=== PATIENT | female | born 1985 | race Asian ===

== ENCOUNTER 2020-10-06 00:56 | Observation (INO) | payer OTHER, SELFPAY ==
[2020-10-06] VITALS (25 sets, daily range): BP systolic 91–147; BP diastolic 64–93; PULSE 82–107; RESP 12–19; TEMP 36.5–38; O2SAT 15–100; BMI 22.4
--- NOTE | 2020-10-06 01:00 | PC.NURSE ---
Error when entering triage vitals. Will not let me edit. respirations 15, pulse ox 99% on room air.
[2020-10-06 01:52] LABS: Add Urine Microscopic? NO; Charge for UA Resulting for Rev
[2020-10-06 01:55] LABS: Glucose Urine UA Norm (Normal); Ketones Urine 1+ (Negative); Protein Urine Neg (Negative); Urine Appearance Clear (CLEAR); Urine Color Yellow (Yellow); pH Urine 5 (5-7)
[2020-10-06 01:56] LABS: Bilirubin Urine Neg (Negative); Blood Urine Neg (Negative); Leukocyte Esterase Urine Negative (Negative); Nitrate Urine Negative (Negative); Urobilinogen Urine Norm (Negative)
--- NOTE | 2020-10-06 02:15 | W.ED.ABDPA2 ---
HPI - Abdominal Pain General: Chief Complaint: Abdominal Pain Stated Complaint: abdominal pain Time Seen by Provider: 10/06/20 02:03 Source: patient Mode of arrival: ambulatory Limitations: no limitations History of Present Illness: HPI narrative: 35-year-old female who states she has a history of bowel syndrome. States she started having pain this evening at 6 PM. States pain is sharp nature and diffuse. She denies any worsening improving factors. Denies any vomiting or diarrhea. She denies any fever. MD elicited complaint: abdominal pain Associated Symptoms: Denies chills, dysuria and fever(s) Related Data: Date of Last Menstrual Period: 09/23/20 Review of Systems Const: Denies: fever(s), chills, body aches or change in appetite Eyes: Denies: blurry vision or eye discomfort ENMT: Denies: throat pain or dental pain Card: Denies: chest pain Resp: Denies: dyspnea GI: Reports: abdominal pain : Denies: dysuria Musc: Denies: neck pain or back pain Skin/Breast: Denies: rash Neuro: Denies: headache(s) Psych: Denies: depression Lopez/Lymph: Denies: easy bruising All/Imm: Denies: urticaria [facility] ED Female Reproductive History: Date of last menstrual period: 09/23/20 Physical Exam Const: COMMON NORMALS: no acute distress, patient oriented x3 and healthy appearing HENMT: COMMON NORMALS: normocephalic and atraumatic HEAD & SCALP: normocephalic and atraumatic Eye: COMMON NORMALS: Equal, round and reactive pupils present and EOMs intact bilaterally PUPIL: Yes Equal, round and reactive pupils present Neck/C-Spine: COMMON NORMALS: full ROM and supple Chest: COMMONS NORMALS: normal inspection of the chest and normal palpation of entire chest wall Resp: COMMON NORMALS: normal respiratory effort, No retractions, No use of accessory muscles and clear to auscultation bilaterally AUSCULTATION: clear to auscultation bilaterally Cardio: COMMON NORMALS: regular rate, regular rhythm and No murmurs present (Cardio) RATE: regular rate RHYTHM: regular rhythm GI: COMMON NORMALS: Normal to inspection, nondistended, normoactive bowel sounds present, Soft to palpation and no masses PALPATION: Yes Soft to palpation OTHER: diffuse mild tenderness Extremity: COMMON NORMALS: normal to inspection and full ROM Neuro: COMMON NORMALS: patient oriented x3, moves all extremities and no focal motor deficits Psych: COMMON NORMALS: mental status grossly normal, Normal thought process present and cooperative THOUGHT PROCESS: Normal thought process present Skin: COMMON NORMALS: no rashes or lesions noted and no wounds GENERAL SKIN EXAM: no rashes or lesions noted Course Vital Signs: Vital signs: Vital Signs Temperature 98.2 F 10/06/20 00:59 Pulse Rate 89 10/06/20 00:59 Respiratory Rate 16 10/06/20 03:10 Blood Pressure 147/93 10/06/20 00:59 Pulse Oximetry 98 10/06/20 03:10 MDM - Abdominal Pain MDM Narrative: Medical decision making narrative: Patient presents with abdominal pain does have an elevated white count CT shows appendicitis. Patient given IV antibiotics I spoke to surgeon Dr. Crooks who is admitting. Patient has been stable while here and has been pain-free after Dilaudid. Lab Data: Labs: Lab Results 10/06/20 10/06/20 10/06/20 Range/Units 01:48 03:15 03:15 WBC 17.3 H (4.0-10.0) 10^3/ uL RBC 4.77 (4.1-5.3) 10^6/u L Hgb 14.6 (11.5-15.3) g/dL Hct 44.1 (37.0-47.0) % MCV 92.5 (81-99) fL MCH 30.6 (28.0-34.0) pg MCHC 33.1 (30.0-36.0) g/dL RDW 11.4 L (12.1-15.1) % Plt Count 263 (130-400) 10^3/c mm MPV 11.0 H (7.4-10.4) fL Neut % (Auto) 88.3 % Lymph % (Auto) 5.6 % [place] % (Auto) 5.1 % Eos % (Auto) 0.0 % Baso % (Auto) 0.5 % Neut # (Auto) 15.26 H (1.8-7.7) 10^3/u L Lymph # (Auto) 1.0 (0.8-4.8) 10^3/u L [place] # (Auto) 0.9 (0.2-0.9) 10^3/u L Eos # (Auto) 0.0 (0.0-0.8) 10^3/u L Baso # (Auto) 0.1 (0.0-0.1) 10^3/u L Nucleated RBC % (a uto) 0 % Nucleated RBCs # 0.0 /100WBC Sodium 137 (136-145) mmol/L Potassium 3.7 (3.5-5.1) mmol/L Chloride 99 (98-107) mmol/L Carbon Dioxide 27 (22-29) mmol/L Anion Gap 14.7 (5-19) BUN 10 (6-20) mg/dL Creatinine 0.7 (0.5-0.9) mg/dL GFR Calculation 94.7 (90-130) mL/min Glucose 114 (65-115) mg/dL Calculated Osmolal ity 284 L (285-295) mOsm/k g Calcium 9.0 (8.5-10.5) mg/dL Total Bilirubin 0.4 (0.15-1.2) mg/dL AST 17 (0-32) U/L ALT 19 (0-33) U/L Alkaline Phosphata se 64 (35-105) IU/L Total Protein 7.8 (6.6-8.7) g/dL Albumin 4.6 (3.5-5.2) g/dL Globulin 3.2 (1.3-4.6) g/dL Lipase 24 (13-60) U/L HCG, Qual (Negative) Urine Color Yellow (Yellow) Urine Appearance Clear (CLEAR) Urine pH 5 (5-7) Ur Specific Gravit y 1.030 (1.005-1.030) Urine Protein Neg (Negative) Urine Glucose (UA) Norm (Normal) Urine Ketones 1+ H (Negative) Urine Blood Neg (Negative) Urine Nitrate Negative (Negative) Urine Bilirubin Neg (Negative) Urine Urobilinogen Norm (Negative) mg/dL Ur Leukocyte Bailey ase Negative (Negative) 10/06/20 Range/Units 03:15 WBC (4.0-10.0) 10^3/ uL RBC (4.1-5.3) 10^6/u L Hgb (11.5-15.3) g/dL Hct (37.0-47.0) % MCV (81-99) fL MCH (28.0-34.0) pg MCHC (30.0-36.0) g/dL RDW (12.1-15.1) % Plt Count (130-400) 10^3/c mm MPV (7.4-10.4) fL Neut % (Auto) % Lymph % (Auto) % [place] % (Auto) % Eos % (Auto) % Baso % (Auto) % Neut # (Auto) (1.8-7.7) 10^3/u L Lymph # (Auto) (0.8-4.8) 10^3/u L [place] # (Auto) (0.2-0.9) 10^3/u L Eos # (Auto) (0.0-0.8) 10^3/u L Baso # (Auto) (0.0-0.1) 10^3/u L Nucleated RBC % (a uto) % Nucleated RBCs # /100WBC Sodium (136-145) mmol/L Potassium (3.5-5.1) mmol/L Chloride (98-107) mmol/L Carbon Dioxide (22-29) mmol/L Anion Gap (5-19) BUN (6-20) mg/dL Creatinine (0.5-0.9) mg/dL GFR Calculation (90-130) mL/min Glucose (65-115) mg/dL Calculated Osmolal ity (285-295) mOsm/k g Calcium (8.5-10.5) mg/dL Total Bilirubin (0.15-1.2) mg/dL AST (0-32) U/L ALT (0-33) U/L Alkaline Phosphata se (35-105) IU/L Total Protein (6.6-8.7) g/dL Albumin (3.5-5.2) g/dL Globulin (1.3-4.6) g/dL Lipase (13-60) U/L HCG, Qual Negative (Negative) Urine Color (Yellow) Urine Appearance (CLEAR) Urine pH (5-7) Ur Specific Gravit y (1.005-1.030) Urine Protein (Negative) Urine Glucose (UA) (Normal) Urine Ketones (Negative) Urine Blood (Negative) Urine Nitrate (Negative) Urine Bilirubin (Negative) Urine Urobilinogen (Negative) mg/dL Ur Leukocyte Bailey ase (Negative) Imaging Data ^: CT Abd/Pel: Attestation: I personally reviewed and interpreted this imaging study as follows: Radiologist's impression: [facility] [address] [address] Scan Report Signed with Fadumo Patient: Jules Duran Unit #: [id number] : 1985 Age/Sex: 35 / F ADM Date: 10/06/20 Loc: ER Room/Bed: Attending Dr: Ordering Provider/Ordering MD: Mely Butler MD Date of Service: 10/06/20 Procedure(s): CT abdomen pelvis w con* [id number] Accession Number(s): [id number] Report Number: [id number]/CT abdomen pelvis w con* [id number] THIS REPORT CONTAINS FINDINGS THAT MAY BE CRITICAL TO PATIENT CARE. The findings were verbally communicated via telephone conference with MELY BUTLER at 4:59 AM CDT on 10/06/2020. The findings were acknowledged and understood. Radiation Dose CTDIVOL = (mGy): DLP = 674.77 (mGy-cm) Addendum Dictated By: Jordan Richards Addendum Signed By: Jordan Richards Signed Date/Time: 10/06/20 0501 Addendum Cosigned By: PROCEDURE INFORMATION: Exam: CT Abdomen And Pelvis With Contrast Exam date and time: 10/06/2020 3:54 AM Age: 35 years old Clinical indication: Abdominal pain; Generalized; Additional info: Abd pain TECHNIQUE: Imaging protocol: Computed tomography of the abdomen and pelvis with contrast. Radiation optimization: All CT scans at this facility use at least one of these dose optimization techniques: automated exposure control; mA and/or kV adjustment per patient size (includes targeted exams where dose is matched to clinical indication); or iterative reconstruction. Contrast material: OMNI 300; Contrast volume: 95 ml; Contrast route: INTRAVENOUS (IV); COMPARISON: No relevant prior studies available. RADIATION DOSE METRICS: Total DLP (mGy-cm): 674.77 FINDINGS: Liver: Normal. No mass. Gallbladder and bile ducts: Normal. No calcified stones. No ductal dilation. Pancreas: Normal. No ductal dilation. Spleen: Normal. No splenomegaly. Adrenal glands: Normal. No mass. Kidneys and ureters: Normal. No hydronephrosis. Stomach and bowel: Unremarkable. No obstruction. No mucosal thickening. Appendix: There is a prominent appendix containing fluid and appendicoliths, measuring up to 1.0 cm in diameter, and demonstrating mild wall thickening, as well as minimal stranding of the surrounding fat. No evidence of free air, extraluminal appendicoliths or fluid collection to suggest perforation. Intraperitoneal space: See Appendix finding. Vasculature: Unremarkable. No abdominal aortic aneurysm. Lymph nodes: Unremarkable. No enlarged lymph nodes. Urinary bladder: The urinary bladder is distended. Reproductive: Unremarkable as visualized. Bones/joints: Mild levocurvature of the lumbar spine is present. Soft tissues: Unremarkable. CT/CT abdomen pelvis w con* [id number] IMPRESSION: Imaging findings concerning for early acute appendicitis. Discharge Plan Discharge Patient Disposition: Admitted As Inpatient Clinical Impression: Acute appendicitis Qualifiers: Acute appendicitis type: unspecified acute appendicitis type Qualified Code(s): K35.80 - Unspecified acute appendicitis Condition: Stable Coding Level of Care Code ED Sales Technician Home Theater for [facility] Fwd Exam Comprehensive
[2020-10-06] MEDS: morphine 4 mg/mL SDV 1 mL IVP (03:10)
[2020-10-06] MEDS: ondansetron 2 mg/ML SDV 2 mL 4 MG IVP (03:10)
[2020-10-06 03:40] LABS: Basophils # 0.1 10^3/uL (0.0-0.1); Basophils % 0.5 %; Hematocrit 44.1 % (37.0-47.0); Hemoglobin 14.6 g/dL (11.5-15.3); Lymphocytes % 5.6 %; Mean Corpuscular HGB Conc 33.1 g/dL (30.0-36.0); Mean Corpuscular Hemoglobin 30.6 pg (28.0-34.0); Mean Corpuscular Volume 92.5 fL (81-99); Monocytes # 0.9 10^3/uL (0.2-0.9); Monocytes % 5.1 %; Neutrophils # 15.26 10^3/uL (1.8-7.7); Neutrophils % 88.3 %; Nucleated Red Blood Cells % 0 %; Platelet Count 263 10^3/cmm (130-400); Red Blood Count 4.77 10^6/uL (4.1-5.3); Red Cell Distribution Width 11.4 % (12.1-15.1); White Blood Count 17.3 10^3/uL (4.0-10.0)
[2020-10-06 03:42] LABS: HCG, Serum Qual Negative (Negative)
[2020-10-06 03:52] LABS: Alanine Aminotransferase 19 U/L (0-33); Albumin Level 4.6 g/dL (3.5-5.2); Alkaline Phosphatase 64 IU/L (35-105); Anion Gap 14.7 (5-19); Aspartate Amino Transferase 17 U/L (0-32); Blood Urea Nitrogen 10 mg/dL (6-20); Carbon Dioxide 27 mmol/L (22-29); Chloride 99 mmol/L (98-107); Globulin 3.2 g/dL (1.3-4.6); Glomerular Filtration Rate 94.7 mL/min (90-130); Glucose 114 mg/dL (65-115); Lipase 24 U/L (13-60); Osmolality Calculated 284 mOsm/kg (285-295); Potassium 3.7 mmol/L (3.5-5.1); Sodium 137 mmol/L (136-145); Total Bilirubin 0.4 mg/dL (0.15-1.2); Total Protein 7.8 g/dL (6.6-8.7)
[2020-10-06] MEDS: iohexol 300 mg/mL 100 mL Btl IV (04:01)
[2020-10-06] MEDS: piperacillin-tazobactam 3.375 GM in sodium chloride 0.9% (plus) 50 ML IV ×2 (05:15→10:33)
[2020-10-06] MEDS: HYDROmorphone 1 mg/mL INJ 1 mL IVP (05:17)
--- NOTE | 2020-10-06 09:06 | ANES.PREANE2 ---
Pre-Anesthetic Assessment Pre-Anesthetic Assessment: Height/Weight: Height 1.52 m Weight 52.163 kg Temp Pulse Resp BP Pulse Ox 99.3 F 84 18 134/76 98 10/06/20 08:47 10/06/20 08:47 10/06/20 08:47 10/06/20 08:47 10/06/20 08:47 Preop Diagnosis: appendicitis Proposed Procedure: Operation Date: 10/06/20 14:50 Proposed Procedures p Laparoscopic Appendectomy(Not Applicable) - Jason Crooks MD Familial anesthetic complications: None Was Beta Fabio taken within 24 hours: N/A Was Clonidine taken within 24 hours: N/A Last intake: Intake Last Liquid Date 10/05/20 Last Liquid Time 22:00 Last Solid Date 10/05/20 Last Solid Time 22:00 Social: Social History: No alcohol and No tobacco Exam: Pre-Anes Outpt Exam: alert, oriented x 3, clear to auscultation bilaterally and regular rate & rhythm Airway: Submandibular: WNL Cervical ROM: WNL MP: 1 Dentition: Full Anesthetic Plan: ASA status: 1 Anesthesia: General Risk of > 500 ml blood loss (7ml/kg in children): No PFSH Anesthesia Female Reproductive History: Date of last menstrual period: 09/23/20 Data Anesthesia CBC & Chem 7: 10/06/20 03:15 10/06/20 03:15 Other Labs: Laboratory Results - last 48 hr 10/06/20 10/06/20 10/06/20 01:48 03:15 03:15 WBC 17.3 H RBC 4.77 Hgb 14.6 Hct 44.1 MCV 92.5 MCH 30.6 MCHC 33.1 RDW 11.4 L Plt Count 263 MPV 11.0 H Neut % (Auto) 88.3 Lymph % (Auto) 5.6 [place] % (Auto) 5.1 Eos % (Auto) 0.0 Baso % (Auto) 0.5 Neut # (Auto) 15.26 H Lymph # (Auto) 1.0 [place] # (Auto) 0.9 Eos # (Auto) 0.0 Baso # (Auto) 0.1 Nucleated RBC % (auto) 0 Nucleated RBCs # 0.0 Sodium 137 Potassium 3.7 Chloride 99 Carbon Dioxide 27 Anion Gap 14.7 BUN 10 Creatinine 0.7 GFR Calculation 94.7 Glucose 114 Calculated Osmolality 284 L Calcium 9.0 Total Bilirubin 0.4 AST 17 ALT 19 Alkaline Phosphatase 64 Total Protein 7.8 Albumin 4.6 Globulin 3.2 Lipase 24 HCG, Qual Urine Color Yellow Urine Appearance Clear Urine pH 5 Ur Specific [place] 1.030 Urine Protein Neg Urine Glucose (UA) Norm Urine Ketones 1+ H Urine Blood Neg Urine Nitrate Negative Urine Bilirubin Neg Urine Urobilinogen Norm Ur Leukocyte Esterase Negative 10/06/20 03:15 WBC RBC Hgb Hct MCV MCH MCHC RDW Plt Count MPV Neut % (Auto) Lymph % (Auto) [place] % (Auto) Eos % (Auto) Baso % (Auto) Neut # (Auto) Lymph # (Auto) [place] # (Auto) Eos # (Auto) Baso # (Auto) Nucleated RBC % (auto) Nucleated RBCs # Sodium Potassium Chloride Carbon Dioxide Anion Gap BUN Creatinine GFR Calculation Glucose Calculated Osmolality Calcium Total Bilirubin AST ALT Alkaline Phosphatase Total Protein Albumin Globulin Lipase HCG, Qual Negative Urine Color Urine Appearance Urine pH Ur Specific [place] Urine Protein Urine Glucose (UA) Urine Ketones Urine Blood Urine Nitrate Urine Bilirubin Urine Urobilinogen Ur Leukocyte Esterase Cardiac Studies: No Data to Display
[2020-10-06] MEDS: fentaNYL 50 mcg/mL INJ 2mL IVP (09:28)
--- NOTE | 2020-10-06 10:14 | PM.HP ---
Providers/Chief Complaint Admitting Physician: Jason Crooks MD Primary Care Provider: Candy Castro MD Chief Complaint: abdominal pain History of Present Illness Jules Duran is a 35 year old female who developed right lower quadrant pain yesterday evening. Patient states the pain progressively got worse, does not radiate, worse with physical activity. Patient denies any fevers, chills, nausea, vomiting or constipation or diarrhea. No urinary symptoms. No similar episodes in the past. Patient does not have any medical or surgical history Review of Systems General: Reports: 10 or more systems reviewed and unremarkable except in HPI and below Medications/Allergies Allergies Allergy/AdvReac Type Severity Reaction Status Date / Time No Known Allergies Allergy Verified 10/06/20 09:17 PFS Acute Female Reproductive History: Date of last menstrual period: 09/23/20 Vitals/I&O/Wt Last Vital Signs Temp 99.3 F 10/06/20 08:47 Pulse 84 10/06/20 08:47 Resp 16 10/06/20 09:28 BP 134/76 10/06/20 08:47 Pulse Ox 97 10/06/20 09:28 10/05/20 10/06/20 10/06/20 22:59 06:59 14:59 Intake Total 50 / 50 0 / 0 Balance 50 / 50 0 / 0 Weight last 48 hrs Weight 115 lb Physical Exam Narrative: EXAM NARRATIVE: HEENT: Normocephalic Eye: Sclera /conjunctiva normal Respiratory and chest: Bilateral clear breath sounds on auscultation Cardiovascular: Normal S1 and S2 heart sounds Abdomen: Soft to palpation, tender right lower quadrant, no guarding or rigidity Neurological: Oriented to place person and time Skin: Intact, no lesions appreciated on gross exam Data : 10/06/20 03:15 10/06/20 03:15 A&P Assessment and plan (1) Acute appendicitis: 35-year-old female with right lower quadrant pain, WBC 17.[address] scan showing early acute appendicitis Plan for laparoscopic possible open appendectomy Procedure, risks, benefits and alternatives have been discussed with the patient who wishes to proceed with surgery. Status: Acute Qualifiers: Acute appendicitis type: unspecified acute appendicitis type Qualified Code(s): K35.80 - Unspecified acute appendicitis Attestations Medical Necessity Statement*: Acute appendicitis Coding Level of Care Code Acute Reference Library Assistant for Chg Fwd Diagnoses Acute appendicitis K35.80 Acute appendicitis type: unspecified acute appendicitis type
--- NOTE | 2020-10-06 11:06 | PM.OP ---
Operative Report Date of procedure: October 06, 2020 Pre-op Diagnosis: Acute appendicitis Post-op diagnosis: same Procedure Done: Laparoscopic appendectomy Specimens removed/disposition: Appendix Surgeon: Jason Crooks Anesthesia: General Condition: stable Disposition: PACU Procedure: The patient was taken to the Operating Room and intubated under general anesthesia after antibiotic had been administered. Using a 15 blade, a 1-cm infraumbilical incision was made and using open Ravi technique, the peritoneal cavity was entered. A 12mm port with balloon was placed and 14 mm of pneumoperitoneum was created and 10-mm 30 degree scope was introduced. Two separate 5mm ports were placed in the left and right lower quadrant under direct visualization. The appendix was noted in the right lower quadrant and appeared acutely inflamed.. Using [place] forceps, an opening was made in the mesoappendix near the base of the appendix. An Endo DENTON stapler 45mm long 3.5mm blue load was introduced to divide the appendix at it's base. Using electrocautery, the mesoappendix including the appendicular artery was divided. There was no bleeding noted and the staple line appeared intact. The right lower quadrant was irrigated with saline and an EndoCatch bag was introduced to remove the appendix. All three ports were removed under direct visualization and there was no bleeding noted on the port sites. 10 0.5% Marcaine was infiltrated at the port sites. The fascia at the umbilical port was closed using figure of eight 0-Vicryl sutures and subcutaneous tissue was approximated using 3-0 Vicryl and skin at all 3 port sites was closed using 4-0 Monocryl and Dermabond.
--- NOTE | 2020-10-06 11:07 | P.DS_ITS ---
Discharge Providers Date of Admission: 10/06/20 06:09 Date of Discharge: October 06, 2020 Attending Provider at Admission: Jason Crooks MD Attending Provider at Discharge: Jason Crooks MD Primary Care Provider: Candy Castro MD Diagnoses at Discharge Discharge Diagnosis (1) Acute appendicitis: Status: Resolved Qualifiers: Acute appendicitis type: unspecified acute appendicitis type Qualified Code(s): K35.80 - Unspecified acute appendicitis Reason for Visit Reason for Visit: abdominal pain Hospital Course Hospital Course Jules Duran is a 35 year old female who developed right lower quadrant pain yesterday evening. Patient states the pain progressively got worse, does not radiate, worse with physical activity. Patient denies any fevers, chills, nausea, vomiting or constipation or diarrhea. No urinary symptoms. No similar episodes in the past. Patient does not have any medical or surgical history Patient is admitted to the hospital and placed on IV Zosyn. She underwent laparoscopic appendectomy. At time of discharge her vital signs are stable, she is tolerating a clear liquid diet and pain controlled with oral pain medications Discharge Data Data Completed and Pending: Completed Studies During Hospitalization Category Date Time Status CT abdomen pelvis w con* [id number] Urge nt Cat Scan 10/06/20 02:14 Completed Pending at discharge Category Date Time Status ES surgery / GI i mages Routine Exams 10/06/20 09:27 Taken Pathology: Surgic al [PTH] Routine Pth 10/06/20 10:52 Ordered Labs from last 24 hours 10/06/20 10/06/20 10/06/20 03:15 03:15 03:15 WBC 17.3 H RBC 4.77 Hgb 14.6 Hct 44.1 MCV 92.5 MCH 30.6 MCHC 33.1 RDW 11.4 L Plt Count 263 MPV 11.0 H Neut % (Auto) 88.3 Lymph % (Auto) 5.6 [place] % (Auto) 5.1 Eos % (Auto) 0.0 Baso % (Auto) 0.5 Neut # (Auto) 15.26 H Lymph # (Auto) 1.0 [place] # (Auto) 0.9 Eos # (Auto) 0.0 Baso # (Auto) 0.1 Nucleated RBC % (a uto) 0 Nucleated RBCs # 0.0 Sodium 137 Potassium 3.7 Chloride 99 Carbon Dioxide 27 Anion Gap 14.7 BUN 10 Creatinine 0.7 GFR Calculation 94.7 Glucose 114 Calculated Osmolal ity 284 L Calcium 9.0 Total Bilirubin 0.4 AST 17 ALT 19 Alkaline Phosphata se 64 Total Protein 7.8 Albumin 4.6 Globulin 3.2 Lipase 24 HCG, Qual Negative Urine Color Urine Appearance Urine pH Ur Specific Gravit y Urine Protein Urine Glucose (UA) Urine Ketones Urine Blood Urine Nitrate Urine Bilirubin Urine Urobilinogen Ur Leukocyte Bailey ase 10/06/20 01:48 WBC RBC Hgb Hct MCV MCH MCHC RDW Plt Count MPV Neut % (Auto) Lymph % (Auto) [place] % (Auto) Eos % (Auto) Baso % (Auto) Neut # (Auto) Lymph # (Auto) [place] # (Auto) Eos # (Auto) Baso # (Auto) Nucleated RBC % (a uto) Nucleated RBCs # Sodium Potassium Chloride Carbon Dioxide Anion Gap BUN Creatinine GFR Calculation Glucose Calculated Osmolal ity Calcium Total Bilirubin AST ALT Alkaline Phosphata se Total Protein Albumin Globulin Lipase HCG, Qual Urine Color Yellow Urine Appearance Clear Urine pH 5 Ur Specific Gravit y 1.030 Urine Protein Neg Urine Glucose (UA) Norm Urine Ketones 1+ H Urine Blood Neg Urine Nitrate Negative Urine Bilirubin Neg Urine Urobilinogen Norm Ur Leukocyte Bailey ase Negative Vitals: Last Vital Signs Temp 99.3 F 10/06/20 08:47 Pulse 84 10/06/20 08:47 Resp 16 10/06/20 09:28 BP 134/76 10/06/20 08:47 Pulse Ox 97 10/06/20 09:28 Discharge Plan Discharge Patient Disposition: Home Condition: Stable Prescriptions: New hydrocodone-acetaminophen 5-325 mg tablet 1 tab PO Q6H PRN (Reason: pain) Qty: 20 RF: 0 docusate sodium [Colace] 100 mg capsule 100 mg PO BID Qty: 30 RF: 0 ondansetron HCl [Zofran] 4 mg tablet 4 mg PO Q6H PRN (Reason: nausea and vomiting) Qty: 20 RF: 0 Discharge Orders: Discharge Order (Routine); Ordered 10/06/20 Ordered By: Jason Crooks Referrals: Candy Castro MD [Primary Care Provider] - Patient Instructions: Appendicitis (GEN), Opioid Safety Discharge Attestations Time Spent in Discharge Care*: less than 30 min Quality Metrics Clinical Quality Measures During this hospital stay, did patient experience: None Coding Level of Care Code Acute Chg FW DC note Diagnoses Acute appendicitis K35.80 Acute appendicitis type: unspecified acute appendicitis type
--- NOTE | 2020-10-06 12:02 | PC.NURSE ---
1145 OR NOTE UP FROM OR VIA GURNEY - PT ABLE TO MOVE SELF TO BED - GROGGY - AP RRR - LUNGS COARSE THROUGHOUT - IV PATENT TO RIGHT AC - X3 STABS TO ABD C/D/I WITH NO REDNESS OR DRAINAGE NOTED - SECURED WITH DERMABOND - ATILIO SCD'S IN PLACE - VSS
--- NOTE | 2020-10-06 12:33 | PC.CHAP ---
Pastoral Care Encounter/Spiritual Assessment Type of Contact [] Declined industrial maintenance electrician visit [] Patient/Family/Request visit [] Outpatient visit [] Follow-up visit [] Physician referral [] Code/Alert [x] Routine visit [] Staff referral [] Actively dying [] Patient sleeping [] Family support [] [x] Out of room [] Palliative care [] [] Receiving care in room [] Pre-surgical visit [] Trauma [] Long length of stay [] ICU visit [] Other: Relational/Emotional Strength [] Patient feels connected with others/family/visitors/staff [] Distress [] Loneliness/isolation [] Abandonment Spirituality of Patient [] Person of Simin [] Attends Mosque of their Simin [] Believes in Prayer [] Reads Bible or Religion materials [] There are Spiritual issues to be addressed Product Finisher Interventions [] Prayer [] Active listening [] Non-anxious presence [] Spiritual/emotional support [] Crisis/trauma care [] Spiritual counseling [] Bereavement support [] Provided bereavement packet [] Provided Bible/devotional materials [] Provided toy/stuffed animal, coloring book to patient or family member [] Provided Communion [] Anointing/[place] [] Salvation [] Completed spiritual assessment [] Other: Impact on Illness or Injury [] Angry [] Fearful [] Anxious [] Often cries [] Exhaustion [] Unable to work [] Unable to attend denominational [] Unable to walk/stand [] Unable to read [] Unable to drive [] Unable to eat/drink [] Unable to sleep [] Unable to be with family [] Patient intubated [] Other: Summary Time spent with patient
[2020-10-06] MEDS: sodium chloride 0.9% 1,000 ML 100 ML IV (13:08)
[2020-10-06] MEDS: morphine 4 mg/mL SDV 1 mL 2 MG IVP (13:11)
--- NOTE | 2020-10-06 14:33 | ANE.PACU2 ---
Inpatient post-anesthesia follow up: Airway intact: Yes Vital signs: Temperature 98.7 F Pulse Rate [Monito r] 89 Pulse Rate 94 Respiratory Rate 16 Blood Pressure [Le ft Arm] 147/93 Blood Pressure 101/66 Pulse Oximetry 97 Oxygen Delivery Me thod Room Air Oxygen Flow Rate Fraction of Inspir ed Oxygen Hydration adequate: Yes Nausea and vomiting: No Pain level: 2 Mental status: Baseline
--- NOTE | 2020-10-06 16:22 | PC.NURSE ---
EDUCATION PER ANJALI LLANES IN OR - PT NEEDS EDUCATION REGARDING USING SECONDARY PROTECTION FOR SEX AFTER RECEIVING OR MEDICATION - DONE - PT VERBALIZES UNDERSTANDING
--- NOTE | 2020-10-06 17:30 | PC.NURSE ---
DISCHARGE INSTRUCTIONS DISCHARGE INSTRUCTIONS GIVEN PER THIS NURSE TO PATIENT - VERBALIZES UNDERSTANDING
== END 2020-10-06 17:59 | disposition home or self-care (01) ==
LOC: ER 05:03 → MEDSURG 05:46
PROVIDERS: Admitting Provider Surgery; Emergency Provider Emergency Medicine; PCP Family Medicine; Visit Provider Surgery
PROC: 0DTJ4ZZ Resection of Appendix, Percutaneous Endoscopic Approach (ICD-10-PCS; CPT 44970; principal; 2020-10-06 14:30)
DX: K35.80 Unspecified acute appendicitis (principal)
CPT/HCPCS: 44970; 74177; 80053; 81003; 83690; 84703; 85025; 88304; 96361; 96365; 96375; 99285; G0378; J0330; J1100; J1170; J2250; J2270; J2405; J2543; J2704; J2710; J3010; J3490; J7030; Q9967

== ENCOUNTER → 2020-11-27 09:46 | Outpatient (BNVA) | payer OTHER, SELFPAY | PROVIDERS: PCP Family Medicine; Visit Provider Surgery | DX: Z01.812 Encounter for preprocedural laboratory examination (principal); Z20.822 Contact with and (suspected) exposure to COVID-19 | CPT/HCPCS: 87635 ==

== ENCOUNTER 2020-12-03 08:13 | Day surgery (SDC) | payer OTHER, SELFPAY ==
[2020-12-01 12:31] VITALS: BMI 21.4
[2020-12-03 09:05] VITALS: BP 127/90; PULSE 80; RESP 18; O2SAT 97
--- NOTE | 2020-12-03 09:12 | ANES.PREANE2 ---
Pre-Anesthetic Assessment Pre-Anesthetic Assessment: Height/Weight: Height 1.52 m Weight 49.895 kg Pulse Resp BP Pulse Ox 80 18 127/90 97 12/03/20 09:05 12/03/20 09:05 12/03/20 09:05 12/03/20 09:05 Preop Diagnosis: screening colonoscopy Proposed Procedure: Operation Date: 12/03/20 10:00 Proposed Procedures p Colonoscopy 85374 K59.0(Not Applicable) - Jason Crooks MD Was Beta Fabio taken within 24 hours: N/A Was Clonidine taken within 24 hours: N/A Last intake: Intake Last Liquid Date 12/02/20 Last Liquid Time 23:00 Last Solid Date 12/01/20 Last Solid Time 15:00 Social: Social History: No alcohol and No tobacco Exam: Pre-Anes Outpt Exam: alert, oriented x 3, clear to auscultation bilaterally and regular rate & rhythm Airway: Submandibular: WNL Cervical ROM: WNL MP: 2 History/ROS: No significant complaints Pulmonary: Pulmonary: None reported CV/HEM: CV/HEM: None reported : : None reported Hepatic: Hepatic: None reported GI: Comments: Chronic constipation Metabolic: Metabolic: None reported Musc/skel: Musc/skel: None reported Neuropsych: Neuropsych: None reported Anesthetic Plan: ASA status: 1 Anesthesia: MAC PFSH Anesthesia PFSH: Medical History (Updated 10/20/20 @ 15:55 by Jason Crooks MD) Constipation Surgical History S/P laparoscopic appendectomy (10/06/20) Female Reproductive History: Date of last menstrual period: 09/23/20 Data Anesthesia Cardiac Studies: No Data to Display
[2020-12-03 09:18] VITALS: TEMP 36.9
[2020-12-03] MEDS: sodium chloride 0.9% 1,000 ML 30 ML IV (09:21)
[2020-12-03 09:22] LABS: OR HCG Qualitative Urine Negative (Negative)
--- NOTE | 2020-12-03 09:54 | P.HP_ITS ---
Same Day Surgery H&P Indication for Procedure/HPI DATE OF PROCEDURE: December 03, 2020 CHIEF COMPLAINT/INDICATIONFOR SURGICAL PROCEDURE: constipation , colonoscopy PREOP DIAGNOSIS: screening colonoscopy PLANNED PROCEDRUE: Operation Date: 12/03/20 10:00 Proposed Procedures p Colonoscopy 02065 K59.0(Not Applicable) - Jason Crooks MD Medications/Allergies* Home Medications Medication Instructions Recorded Confirmed Type No Known Home Medications 12/03/20 12/03/20 History Allergies/Adverse Reactions Allergy/AdvReac Type Severity Reaction Status Date / Time No Known Allergies Allergy Verified 10/20/20 13:50 Current Medications: Generic Name Dose Route Start Last Admin Trade Name Freq PRN Reason Stop Dose Admin Sodium Chloride 1,000 mls @ 30 mls/hr 12/03/20 08:30 12/03/20 09:21 Sodium Chloride 0.9% IV 12/04/20 08:29 30 mls/hr .Q24H JORDAN Administration Pertinent History/Comorbid Conditions* Medical History (Updated 10/20/20 @ 15:55 by Jason Crooks MD) Constipation Surgical History (Updated 10/06/20 @ 11:08 by Jason Crooks MD) S/P laparoscopic appendectomy (10/06/20) Pertinent Exam Findings alert, oriented x 3 and regular rate & rhythm Recommendations Surgery/Procedure today Coding Level of Care Code Acute [employer] for Nichol Tate
[2020-12-03 10:26] VITALS: BP 101/73; PULSE 67; RESP 16; TEMP 36.6; O2SAT 98
[2020-12-03 10:41] VITALS: BP 120/76; PULSE 65; RESP 16; O2SAT 99
--- NOTE | 2020-12-03 11:19 | ANE.PACU2 ---
Inpatient post-anesthesia follow up: Airway intact: Yes Vital signs: Temperature 97.8 F Pulse Rate 65 Respiratory Rate 16 Blood Pressure 120/76 Pulse Oximetry 99 Oxygen Delivery Me thod Room Air Oxygen Flow Rate Fraction of Inspir ed Oxygen Hydration adequate: Yes Nausea and vomiting: No Pain level: 1 Mental status: Baseline
== END 2020-12-03 10:55 | disposition home or self-care (01) ==
PROVIDERS: Anesthesiology; PCP Family Medicine; Visit Provider Surgery
PROC: 0DJD8ZZ Inspection of Lower Intestinal Tract, Via Natural or Artificial Opening Endoscopic (ICD-10-PCS; CPT 45378; principal; 2020-12-03 10:00)
DX: K59.00 Constipation, unspecified (principal); K64.8 Other hemorrhoids
CPT/HCPCS: 45378; 84703; 96360; J2704; J7030